=== PATIENT | female | born 1965 | race Hispanic/Latino ===

== ENCOUNTER 2020-11-06 14:49 | Outpatient (CLI) | payer OTHER | END 2020-11-06 14:50 | disposition home or self-care (01) | LOC: CSHMAMMO 14:49 | PROVIDERS: ATTEND Family Medicine | DX: Z12.31 Encounter for screening mammogram for malignant neoplasm of breast (principal) | CPT/HCPCS: 77063; 77067 ==

== ENCOUNTER 2021-08-05 08:07 | Outpatient (CLI) | payer OTHER | END 2021-08-05 08:08 | disposition home or self-care (01) | LOC: CSHULT 08:07 | PROVIDERS: ATTEND Family Medicine | DX: R10.11 Right upper quadrant pain (principal); K80.20 Calculus of gallbladder without cholecystitis without obstruction; R93.2 Abnormal findings on diagnostic imaging of liver and biliary tract | CPT/HCPCS: 76705 ==

== ENCOUNTER 2022-10-19 09:48 | Outpatient (CLI) | payer BC | END 2022-10-19 09:49 | disposition home or self-care (01) | LOC: CSHMAMMO 09:48 | PROVIDERS: ATTEND Nurse Practitioner Family | DX: Z12.31 Encounter for screening mammogram for malignant neoplasm of breast (principal); Z91.89 Other specified personal risk factors, not elsewhere classified | CPT/HCPCS: 77063; 77067 ==